=== PATIENT | male | born 1935 | race Caucasian/White ===

== ENCOUNTER 2019-05-04 18:27 | Emergency (ER) | payer MEDICARE ==
--- NOTE | 2019-05-04 18:41 | Emergency Department Record ---
History of Present Illness - General Chief complaint: Weakness Stated complaint: LEGS WEAK Time Seen by Provider: 05/04/19 18:29 Source: Patient Mode of Arrival: Wheelchair Limitations: No limitations - History of Present Illness Initial comments: 83 yo male presents to ED for evaluation of progressively worsening weakness of the lower extremities bilaterally over the past 24 hours. Patient denies fevers, chills, cough, urinary symptoms, or recent illness. 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 Patient denies change in speech,m vision, or current headache symptoms. MD Complaint: Generalized weakness Onset/Timin -: Hour(s) Location: LLE, RLE Severity: Moderate Consistency: Constant Improves with: None Worsens with: None Associated Symptoms: Denies other symptoms - Catie Coma Scale Eye Response: (4) Open spontaneously Motor Response: (6) Obeys commands Verbal Response: (5) Oriented Catie Total: 15 - Related Data Home Medications Medication Instructions Recorded Confirmed Last Taken Doxazosin Mesylate 8 mg PO DAILY 05/04/19 05/04/19 05/03/19 Finasteride [Proscar] 5 mg PO DAILY 05/04/19 05/04/19 05/03/19 Simvastatin 40 mg PO QHS 05/04/19 05/04/19 05/03/19 Allergies Allergy/AdvReac Type Severity Reaction Status Date / Time No Known Drug Allergies Allergy Verified 05/04/19 18:44 Review of Systems Constitutional: Denies: Chills, Fever, Malaise, Night sweats Eyes: Denies: Eye discharge, Eye pain ENT: Denies: Congestion, Ear pain, Epistaxis Respiratory: Denies: Cough, Dyspnea Cardiovascular: Denies: Chest pain, Dyspnea on exertion Endocrine: Denies: Fatigue, Heat or cold intolerance Gastrointestinal: Denies: Abdominal pain, Nausea, Vomiting Genitourinary: Denies: Incontinence, Retention Musculoskeletal: Denies: Arthralgia, Back pain Skin: Denies: Bruising, Change in color Neurological: Reports: Weakness. Denies: Abnormal gait, Confusion, Headache, Numbness, Paresthesias, Tingling, Tremors Psychiatric: Denies: Anxiety Hematological/Lymphatic: Denies: Anemia, Blood Clots Past Medical History - SOCIAL HISTORY Smoking Status: Former smoker - RESPIRATORY Hx Respiratory Disorders: No - CARDIOVASCULAR Hx Cardio Disorders: No - NEURO Hx Neuro Disorders: Yes Hx CVA: Yes (x's 3 last 2013) - GI Hx GI Disorders: Yes Hx of Polyps: Yes - Hx Genitourinary Disorders: Yes Hx Prostate Problems: Yes (BPH) - ENDOCRINE Hx Endocrine Disorders: No - MUSCULOSKELETAL Hx Musculoskeletal Disorders: Yes Hx Arthritis: Yes Comment:: right ankle - PSYCH Hx Psych Problems: No - HEMATOLOGY/ONCOLOGY Hx Hematology/Oncology Disorders: No Family Medical History Hx Cancer: Father Hx Heart Disease: Mother Hx Stroke: Brother/Sister Physical Exam - General General Appearance: Alert, Oriented x3, Cooperative, No acute distress, Other (Stands and ambulates from wheelchair with steady gait on examination.) Limitations: No limitations - Head Head exam: Atraumatic, Normocephalic, Normal inspection Head exam detail: negative: Abrasion, Contusion, Wilson's sign, General tenderness, Hematoma, Laceration - Eye Eye exam: Normal appearance. negative: Conjunctival injection, Periorbital swelling, Periorbital tenderness, Scleral icterus - ENT Ear exam: negative: Auricular hematoma, Auricular trauma Nasal Exam: negative: Active bleeding, Discharge, Dried blood, Foreign body Mouth exam: negative: Drooling, Laceration, Muffled voice, Tongue elevation - Neck Neck exam: Normal inspection. negative: Meningismus, Tenderness - Respiratory Respiratory exam: Normal lung sounds bilaterally. negative: Respiratory distress, Rhonchi, Stridor, Wheezes - Cardiovascular Cardiovascular Exam: Regular rate, Normal rhythm, Normal heart sounds - GI/Abdominal GI/Abdominal exam: Soft. negative: Distended, Rebound, Rigid, Tenderness - Rectal Rectal exam: Deferred - exam: Deferred - Extremities Extremities exam: Normal inspection. negative: Pedal edema, Tenderness - Back Back exam: Denies: CVA tenderness (R), CVA tenderness (L) - Neurological Neurological exam: Alert, Normal gait, Oriented X3 - Psychiatric Psychiatric exam: Normal affect, Normal mood - Skin Skin exam: Normal color. negative: Abrasion Type of lesion: negative: abrasion Course - Reevaluation(s) Reevaluation #1: 05/04/19 18:40 No convincing clinical evidence for an acute CVA is present on examination. Will obtain CT imaging of the head to exclude acute bleed, obtain urinalysis and laboratory studies and reassess. Reevaluation #2: 05/04/19 19:17 Laboratory studies were reviewed and appear grossly unremarkable for an acute process except for the following: Hgb 7.4 (previous .2017) HCT: 26.6 Patient has been unable to provide UA sample Patient is currently in CT. 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 Reevaluation #4: 05/04/19 19:51 Case was discussed with Dr. Trinidad, Dr. Trevion, and , will accept transfer for Trauma and Neurosurgical evaluation. TXA was not recommended following my discussion with the above providers. Medical Decision Making - Lab Data Result diagrams: 05/04/19 18:45 05/04/19 18:45 Critical Care Time Critical Care Time: Yes Total Critical Care Time: 45 Critical Care Time: Diagnosis and treatment of acute on chronic SDH Exclusion of other causes of acute weakness from metabolic/infectious causes. Consultation with Trauma, Neurosurgery re: traumatic SDH Consideration of TXA Frequent updates and discussions with the patient and family members at the bedside. Disposition Disposition: Transfer Clinical Impression: SDH (subdural hematoma) Anemia Qualifiers: Anemia type: other cause Other causes of anemia: other cause, not classified Qualified Code(s): D64.89 - Other specified anemias Disposition: Acute Care Hospital Transfer Transfer To: [facility] Reason For Transfer: Trauma/Neurosurgical evaluation Accepting Physician: Amos Clifton Ansari Time Discussed w/Accepting Physician: 19:53 Condition: (2) Stable Forms: Patient Portal Access Time of Disposition: 19:53 Quality - Quality Measures Quality Measures: N/A - Blood Pressure Screening Does Patient Have Any of the Following: No Blood Pressure Classification: Normal BP Reading Systolic Measurement: 118 Diastolic Measurement: 65 Screening for High Blood Pressure: < Normal BP, F/U Not Required > [G8783]
[2019-05-04 18:51] LABS: ABSOLUTE NEUTROPHIL COUNT 6.26; HEMATOCRIT 26.6 % (42.0-52.0); HEMOGLOBIN 7.4 gm/dl (14.0-18.0); MEAN CORPUSCULAR HGB CONC 27.8 g/dl (32-36); MEAN PLATELET VOLUME 9.7 fl (7.4-10.4); PLATELET COUNT 271 K/uL (130-400); RED CELL DISTRIBUTION WIDTH 18.5 % (11.5-14.5); WHITE BLOOD COUNT W/O DIFF 7.4 K/uL (4.2-12.2)
[2019-05-04 18:53] LABS: MEAN CORPUSCULAR HEMOGLOBIN 19.4 pg (27-33)
[2019-05-04 18:58] LABS: HYPOCHROMIA 2+; PLATELET ESTIMATE NORMAL (NORMAL)
[2019-05-04 18:59] LABS: ANISOCYTOSIS 2+; POIKILOCYTOSIS 1+
[2019-05-04 19:04] LABS: BLOOD UREA NITROGEN 22 mg/dL (8-23)
[2019-05-04 19:05] LABS: CREATININE 1.2 mg/dL (0.7-1.2); EST GLOMERULAR FILTRATION RATE > 60 mL/min; TOTAL PROTEIN 6.9 g/dL (6.6-8.7)
[2019-05-04 19:06] LABS: INFLUENZA A NEGATIVE (NEGATIVE); INFLUENZA B NEGATIVE (NEGATIVE)
[2019-05-04 19:07] LABS: GLUCOSE,RANDOM 115 mg/dL (74-109)
[2019-05-04 19:10] LABS: ALB/GLOB RATIO 1.7 (1.1-1.8); ALBUMIN 4.3 g/dL (4.0-5.0); ALKALINE PHOSPHATASE 50 U/L (40-129); ALT/SGPT 9 U/L (<41); AST/SGOT 13 U/L (10.0-50.0)
--- NOTE | 2019-05-04 19:52 | CT SCAN REPORT ---
EXAMINATION: HEAD WO CONTRAST EXAM DATE: 05/04/2019 7:28 PM TECHNIQUE: Noncontrast axial images were obtained to the brain. INDICATION: Weakness, h/o CVA COMPARISON: None. ENCOUNTER: Not applicable HAND DOMINANCE: Unknown FINDINGS: Bilateral holohemispheric mixed attenuation subdural hemorrhages are demonstrated. These are predomin antly low-attenuation with small regions of hyperattenuation. On coronal images the right measures 24 mm in depth and the left measures 22 mm in depth (601:80). Mass effect on the lateral and third ventricles. Associated 11 mm midline shift to left. No hydroceph alus Encephalomalacia in the left frontoparietal region and in the posterior right occipital lobe consiste nt with chronic infarct. No evidence of acute infarct or cranial mass. There is opacification of the right maxillary sinus and ostiomeatal unit. Orbits paranasal sinuses an d mastoid air cells are otherwise unremarkable. Calvarium is intact. IMPRESSION: 1. Bilateral large mixed attenuation subdural hemorrhages, likely acute or chronic. 2. Associated 11 mm midline shift right to left 3. 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 4. 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 Ino Hodges at 05/04/2019 7:44 PM. Dictated by: JOON WINTER MD on 05/04/2019 7:42 PM. .
== END 2019-05-04 20:10 | disposition short-term general hospital (02) ==
LOC: ER 18:27
DX: S06.5X9A Traumatic subdural hemorrhage with loss of consciousness of unspecified duration, initial encounter (principal); W19.XXXA Unspecified fall, initial encounter; R53.1 Weakness; D64.89 Other specified anemias; Z87.891 Personal history of nicotine dependence; Z86.73 Personal history of transient ischemic attack (TIA), and cerebral infarction without residual deficits
CPT/HCPCS: 70450; 80053; 83605; 84484; 85027; 87400; 99291